=== PATIENT | female | born 1980 | race Caucasian/White ===

== ENCOUNTER 2020-07-14 00:14 | Emergency (ER) | payer BC ==
[2020-07-14] MEDS ORDERED: diphenhydrAMINE 50 MG/ML VIAL ONE (00:18)
[2020-07-14] MEDS ORDERED: methylPREDNISolone Sod Succ/PF 125 MG/2 ML VIAL ONE (00:18)
[2020-07-14] MEDS ORDERED: Famotidine In NaCl 20 mg/50 ml Premix Bag ONE (00:18)
== END 2020-07-14 01:35 | disposition home or self-care (01) ==
LOC: BURERS 00:14
DX: L27.0 Generalized skin eruption due to drugs and medicaments taken internally (principal); T44.5X5A Adverse effect of predominantly beta-adrenoreceptor agonists, initial encounter; F17.210 Nicotine dependence, cigarettes, uncomplicated
CPT/HCPCS: 96365; 96375; J1200; J2930